=== PATIENT | female | born 1970 | race African-American/Black ===

== ENCOUNTER 2017-02-27 09:22 | Emergency (ER) | payer MEDICAID, OTHER ==
[~2017-02-27] VITALS: Ht 157.5 cm; Wt 90.0 kg
[~2017-02-27 09:22] MED LIST: AMLO5TAB4 PO; ASPI-1159 PO; ESTR0.3T3 PO; FURO20TA4; LOP25 PO
[2017-02-27 11:41] VITALS: BP 135/70
== END 2017-02-27 12:21 | disposition home or self-care (01) ==
LOC: ER 10:02
DX: N75.0 Cyst of Bartholin's gland (principal); Z79.82 Long term (current) use of aspirin; Z88.1 Allergy status to other antibiotic agents
CPT/HCPCS: 99282

== ENCOUNTER 2017-06-10 17:13 | Emergency (ER) | payer MEDICAID ==
[~2017-06-10] VITALS: Ht 154.9 cm; Wt 96.0 kg
[2017-06-10 18:22] VITALS: BP 162/73
== END 2017-06-10 21:27 | disposition home or self-care (01) ==
LOC: ER 20:37
DX: J06.9 Acute upper respiratory infection, unspecified (principal); Z79.82 Long term (current) use of aspirin; Z88.1 Allergy status to other antibiotic agents; Z91.038 Other insect allergy status; Z90.710 Acquired absence of both cervix and uterus
CPT/HCPCS: 99282; Z7610

== ENCOUNTER 2019-01-18 16:01 | Emergency (ER) | payer MEDICAID ==
[~2019-01-18] VITALS: Ht 154.9 cm; Wt 118.0 kg
[~2019-01-18 16:01] MED LIST changes: -ASPI-1159 PO; +ASPI-1393 PO
[2019-01-18] MEDS ORDERED: KCL (16:42)
[2019-01-18] MEDS ORDERED: CLIN300C11 PO (16:42)
[2019-01-18 17:49] LABS: EOSINOPHILS % 2.6 % (0.0-5.0); HEMATOCRIT. 37.9 % (36.0-48.0); HEMOGLOBIN. 12.4 g/dL (12.0-16.0); LYMPHOCYTES % 38.1 % (20.0-50.0); MEAN CORPUSCULAR VOLUME 85.6 fL (81.0-99.0); MONOCYTES % 11.9 % (2.0-8.0); NEUTROPHILS % 46.4 % (40.0-76.0); PLATELET 232 x1000/uL (130-400); RED BLOOD CELL COUNT 4.43 mill/uL (4.2-5.4); RED CELL DISTRIBUTION WIDTH 13.8 % (11.6-14.6)
[2019-01-18 17:51] LABS: CHLORIDE 106 mEq/L (98-107)
[2019-01-18 18:05] LABS: HCG SCREEN NEGATIVE
[2019-01-18 18:10] LABS: *AMPHETAMINES SCREEN URINE NEGATIVE (NEGATIVE); *BARBITURATES SCREEN URINE NEGATIVE (NEGATIVE); *BENZODIAZEPINES SCREEN URINE NEGATIVE (NEGATIVE); *COCAINE SCREEN URINE NEGATIVE (NEGATIVE)
[2019-01-18 18:12] LABS: CANNABINOID URINE SCREEN NEGATIVE (NEGATIVE); METHADONE URINE SCREEN NEGATIVE (NEGATIVE); OPIATES URINE SCREEN NEGATIVE (NEGATIVE); PHENCYCLIDINE URINE SCREEN NEGATIVE (NEGATIVE)
[2019-01-18 20:22] VITALS: BP 149/59
== END 2019-01-18 20:47 | disposition home or self-care (01) ==
LOC: ER 16:01
DX: R60.0 Localized edema (principal); Z88.1 Allergy status to other antibiotic agents; Z79.899 Other long term (current) drug therapy; Z90.710 Acquired absence of both cervix and uterus
CPT/HCPCS: 36415; 71045; 80048; 80305; 81025; 83880; 84484; 84703; 93005; 93970; 99284

== ENCOUNTER 2019-04-07 12:40 | Emergency (ER) | payer MEDICAID ==
[~2019-04-07] VITALS: Ht 154.9 cm; Wt 113.0 kg
[~2019-04-07 12:40] MED LIST changes: -AMLO5TAB4 PO; -ASPI-1393 PO; +CLIN300C11 PO; -ESTR0.3T3 PO; +KCL; -LOP25 PO
[2019-04-07 16:20] VITALS: BP 162/81
== END 2019-04-07 16:36 | disposition home or self-care (01) ==
LOC: ER 12:40
DX: S46.812A Strain of other muscles, fascia and tendons at shoulder and upper arm level, left arm, initial encounter (principal); S46.811A Strain of other muscles, fascia and tendons at shoulder and upper arm level, right arm, initial encounter; X58.XXXA Exposure to other specified factors, initial encounter; Y93.9 Activity, unspecified; Y92.9 Unspecified place or not applicable
CPT/HCPCS: 99283

== ENCOUNTER 2019-04-09 18:21 | Emergency (ER) | payer MEDICAID ==
[~2019-04-09] VITALS: Ht 154.9 cm; Wt 91.0 kg
[2019-04-10] MEDS ORDERED: FUROSEMIDE 40MG/4ML VIAL IVP ONE
[2019-04-10] MEDS ORDERED: TRAMADOL 50MG TABLET PO ONE
[2019-04-10 00:29] LABS: BASOPHILS % 1.4 % (0.0-2.0); EOSINOPHILS % 3.1 % (0.0-5.0); HEMATOCRIT. 37.4 % (36.0-48.0); HEMOGLOBIN. 12.1 g/dL (12.0-16.0); LYMPHOCYTES % 40.8 % (20.0-50.0); MEAN CORPUSCULAR HEMOGLOBIN 27.4 pg (28.0-32.0); MEAN CORPUSCULAR VOLUME 84.7 fL (81.0-99.0); MONOCYTES % 8.4 % (2.0-8.0); NEUTROPHILS % 46.3 % (40.0-76.0); PLATELET 233 x1000/uL (130-400); RED BLOOD CELL COUNT 4.42 mill/uL (4.2-5.4); RED CELL DISTRIBUTION WIDTH 13.8 % (11.6-14.6)
[2019-04-10 00:39] LABS: CHLORIDE 107 mEq/L (98-107)
[2019-04-10] MEDS ORDERED: ACETAMINOPHEN 500MG TABLET PO ONE (01:00)
[2019-04-10 07:00] VITALS: BP 140/58
== END 2019-04-10 07:35 | disposition home or self-care (01) ==
LOC: ER 18:21
DX: R60.0 Localized edema (principal); M25.511 Pain in right shoulder; I10 Essential (primary) hypertension; Z88.1 Allergy status to other antibiotic agents; Z90.710 Acquired absence of both cervix and uterus; Z79.899 Other long term (current) drug therapy
CPT/HCPCS: 36415; 76705; 80048; 84484; 85025; 96374; 99284; J1940; Z7610

== ENCOUNTER 2019-12-19 10:19 | Emergency (ER) | payer MEDICAID ==
[~2019-12-19] VITALS: Ht 157.5 cm; Wt 82.0 kg
[2019-12-19] MEDS ORDERED: PREDNISONE 20MG TABLET PO ONE (11:15)
[2019-12-19] MEDS ORDERED: KETOROLAC 60MG/2ML VIAL IM ONE (11:15)
[2019-12-19] MEDS ORDERED: AMOXICILLIN/POTASSIUM CLAVULANATE 875/125MG TAB PO ONE (11:15)
[2019-12-19 11:31] VITALS: BP 176/66
== END 2019-12-19 11:43 | disposition home or self-care (01) ==
LOC: ER 10:19
DX: S40.861A Insect bite (nonvenomous) of right upper arm, initial encounter (principal); L03.113 Cellulitis of right upper limb; W57.XXXA Bitten or stung by nonvenomous insect and other nonvenomous arthropods, initial encounter; Y93.89 Activity, other specified; Y92.89 Other specified places as the place of occurrence of the external cause
CPT/HCPCS: 96372; 99283; J1885; J7512

== ENCOUNTER 2024-06-21 23:57 | Emergency (ER) | payer MEDICAID ==
[~2024-06-21] VITALS: Ht 160 cm; Wt 105.9 kg
[~2024-06-21 23:57] MED LIST changes: +CLIN-194 PO; -CLIN300C11 PO
[2024-06-22 00:25] VITALS: O2SAT 99
[2024-06-22 01:16] LABS: BASOPHILS % 1.3 % (0.0-2.0); EOSINOPHILS % 3.6 % (0.0-5.0); HEMATOCRIT. 37.3 % (36.0-48.0); HEMOGLOBIN. 11.9 g/dL (12.0-16.0); LYMPHOCYTES % 50.9 % (20.0-50.0); MEAN CORPUSCULAR HGB CONC 31.9 g/dL (31.0-37.0); MEAN CORPUSCULAR VOLUME 87.7 fL (81.0-99.0); MEAN PLATELET VOLUME 7.8 fl (7.4-10.4); NEUTROPHILS % 34.2 % (40.0-76.0); PLATELET 222 x1000/uL (130-400); RED BLOOD CELL COUNT 4.25 mill/uL (4.2-5.4); RED CELL DISTRIBUTION WIDTH 14.3 % (11.6-14.6); WHITE BLOOD COUNT 5.5 x1000/uL (4.5-11.0)
[2024-06-22 01:21] LABS: CHLORIDE 108 mEq/L (98-107); POTASSIUM 4.1 mEq/L (3.5-5.1); SODIUM 141 mEq/L (136-145)
[2024-06-22 01:22] LABS: CARBON DIOXIDE 27 mEq/L (21-32)
[2024-06-22 01:23] LABS: CALCIUM 9.1 mg/dL (8.7-10.4)
[2024-06-22 01:28] LABS: GLUCOSE 100 mg/dL (70-105); UREA NITROGEN BLOOD 18 mg/dL (9-23)
[2024-06-22 01:29] LABS: TROPONIN I HIGH SENSITIVITY 7 ng/L (3.0-34)
[2024-06-22 03:42] LABS: TROPONIN I HIGH SENSITIVITY 6 ng/L (3.0-34)
[2024-06-22] MEDS ORDERED: LIDO700A15 TP (03:52)
[2024-06-22] MEDS ORDERED: NAPR-1176 MT (03:52)
[2024-06-22 04:19] VITALS: BP 141/83; PULSE 70; RESP 17; TEMP 37.11408; O2SAT 99
== END 2024-06-22 04:20 | disposition home or self-care (01) ==
LOC: ER 06-22 00:17
DX: R07.89 Other chest pain (principal); I10 Essential (primary) hypertension; Z88.1 Allergy status to other antibiotic agents; Z90.710 Acquired absence of both cervix and uterus
CPT/HCPCS: 36415; 71045; 80048; 84484; 85025; 93005; 99285